=== PATIENT | female | born 1950 | race Caucasian/White ===

== ENCOUNTER 2016-11-03 06:48 | Day surgery (SDC) | payer BC ==
[2016-11-02 17:43] VITALS: BMI 29.3
[~2016-11-03] VITALS: Ht 160 cm; Wt 77.0 kg
[2016-11-03] VITALS (14 sets, daily range): BP systolic 122–161; BP diastolic 72–90; PULSE 96–110; RESP 15–18; Ht 160 cm; Wt 77.0 kg
[~2016-11-03 06:48] MED LIST: CEFAZOLIN 2 GM/50 ML (PMX) 50 ML IVPB ONE
[2016-11-03] MEDS ORDERED: SOD CHLORIDE 0.9% 1,000 ML IV SCH (07:00)
[2016-11-03] MEDS ORDERED: CEFAZOLIN 1 GM INJ ONE (07:00)
[2016-11-03] MEDS ORDERED: LIDOCAINE 2% (SDV) 5 ML INJ ONE (08:44)
[2016-11-03] MEDS ORDERED: GLYCOPYRROLATE 0.4 MG INJ ONE (08:44)
[2016-11-03] MEDS ORDERED: ROCURONIUM 50 MG INJ ONE (08:44)
[2016-11-03] MEDS ORDERED: PROPOFOL 20 ML ONE (08:44)
[2016-11-03] MEDS ORDERED: FENTAnyl 50 MCG/ML VIAL ONE (08:44)
[2016-11-03] MEDS ORDERED: MIDAZOLAM 1 MG/ML 2 ML INJ ONE (08:44)
[2016-11-03] MEDS ORDERED: NEOSTIGMINE 3 MG/3 ML SYRINGE ONE (08:44)
[2016-11-03] MEDS ORDERED: SUCCINYLCHOLINE CHLORIDE 100 MG/5 ML SYG IV ONE (08:45)
[2016-11-03] MEDS ORDERED: EPHEDrine SULFATE 50 MG/5 ML SYG ONE (08:45)
[2016-11-03] MEDS ORDERED: ONDANSETRON 4 MG INJ ONE (08:49)
[2016-11-03] MEDS ORDERED: TELM80TA4 PO (08:55)
[2016-11-03] MEDS ORDERED: MIRT15TA5 PO (08:56)
[2016-11-03] MEDS ORDERED: OMEP20CA16 PO (08:56)
[2016-11-03] MEDS ORDERED: TOPI50TA5 PO (08:56)
[2016-11-03 08:59] LABS: ADD SCAN DIFF NO
[2016-11-03] MEDS ORDERED: DIPHENHYDRAMINE 50 MG INJ IV PRN (09:00)
[2016-11-03] MEDS ORDERED: EPHEDrine SULFATE 50 MG/5 ML SYG IV PRN (09:00)
[2016-11-03] MEDS ORDERED: FENTAnyl 50 MCG/ML VIAL IV PRN ×2 (09:00)
[2016-11-03] MEDS ORDERED: ATROPINE 1 MG/10 ML SYRINGE IV PRN (09:00)
[2016-11-03] MEDS ORDERED: OXYCODONE/ACETAMINOPHEN (5/325) TAB PO PRN ×2 (09:00)
[2016-11-03] MEDS ORDERED: hydrALAzine 20 MG INJ IV PRN (09:00)
[2016-11-03] MEDS ORDERED: HYDROmorphONE (0.2 MG/ML) 10ML SYG IV PRN ×3 (09:00)
[2016-11-03] MEDS ORDERED: morphine (1 MG/ML) 10ML SYRINGE IV PRN ×3 (09:00)
[2016-11-03] MEDS ORDERED: MEPERIDINE 25 MG INJ IV PRN (09:00)
[2016-11-03] MEDS ORDERED: LABETALOL HCL 20MG INJ IV PRN (09:00)
[2016-11-03] MEDS ORDERED: ONDANSETRON 4 MG INJ IV PRN (09:00)
[2016-11-03] MEDS ORDERED: MIDAZOLAM 1 MG/ML 2 ML INJ IV PRN (09:00)
[2016-11-03 09:02] LABS: BASOPHILS % 0.5 % (0.0-2.0); EOSINOPHILS # 0.2 10^3/ul (0.0-0.5); EOSINOPHILS % 3.1 % (0.0-7.0); HEMATOCRIT 37.7 % (37.0-47.0); HEMOGLOBIN 13.1 g/dl (12.0-16.0); LYMPHOCYTES # 2.2 10^3/ul (0.8-2.9); MEAN CORPUSCULAR HEMOGLOBIN 30.8 pg (29.0-33.0); MEAN CORPUSCULAR HGB CONC 34.7 g/dl (32.0-37.0); MEAN CORPUSCULAR VOLUME 88.7 fl (82.0-101.0); MEAN PLATELET VOLUME 10.1 fl (7.4-10.4); MONOCYTE # 0.5 10^3/ul (0.3-0.9); MONOCYTES % 7.8 % (0.0-11.0); NEUTROPHILS % 51.4 % (39.0-77.0); PLATELET COUNT 241 10^3/UL (140-415); RED BLOOD COUNT 4.25 10^6/ul (4.20-5.40); RED CELL DISTRIBUTION WIDTH 13.2 % (11.5-14.5); WHITE BLOOD COUNT 5.9 10^3/ul (4.8-10.8)
[2016-11-03 09:15] LABS: INR 1.06; PARTIAL THROMBOPLASTIN TIME 30.2 Sec (25.0-35.0); PROTIME 13.8 Sec (12.2-14.2); PT RATIO 1.1
--- NOTE | 2016-11-03 09:21 | RADRPT ---
PROCEDURE: XR Chest. CLINICAL INDICATION: Preoperative, breast cancer TECHNIQUE: Single frontal view of the chest was obtained COMPARISON: None FINDINGS: The heart and mediastinum are within normal limits. The lungs are clear. There is no pleural effusion or pneumothorax. RPTAT: AA IMPRESSION: No acute disease. .Galdino Ramirez MD, MD Date Time Electronically viewed and signed by .Galdino Ramirez MD, on 11/03/2016 09:21 .S/
[2016-11-03 09:25] LABS: CALCIUM 9.3 mg/dl (8.4-10.2); CREATININE 0.71 mg/dl (0.44-1.00); POTASSIUM 3.9 mmol/L (3.5-5.1)
[2016-11-03] MEDS ORDERED: CEFAZOLIN 2 GM/50 ML (PMX) 50 ML IVPB SCH (09:30)
[2016-11-03] MEDS ORDERED: LIDOCAINE 4% CR ONE (10:23)
--- NOTE | 2016-11-03 10:38 | RADRPT ---
Vent Rate: 77 bpm RR Interval: 0 msec SC Interval: 138 msec QRS Duration: 82 msec QT Interval: 410 msec QTC Interval: 463 msec P-R-T [place]: 57 - 22 - 44 degrees Normal sinus rhythm Normal ECG Electronically Signed By: Sincere Maurice [id number]
--- NOTE | 2016-11-03 11:39 | OPR ---
DATE OF OPERATION: 11/03/2016 PREOPERATIVE DIAGNOSIS: Ductal carcinoma in situ, left breast. POSTOPERATIVE DIAGNOSIS: Ductal carcinoma in situ, left breast. PROCEDURE PERFORMED: Needle-directed left partial mastectomy. SURGEON: Cheo Murrieta MD COAL HAULER: None. ANESTHESIA: General. ANESTHESIOLOGIST: Mike Hough MD INDICATIONS FOR PROCEDURE: The patient is a 66-year-old female who underwent screening mammography and was found to have a suspicious area in her left breast. Core biopsy revealed DCIS and complete excision was recommended. The patient consented and was scheduled for surgery. DESCRIPTION OF PROCEDURE: On the morning of surgery, the patient presented to [facility] where she underwent localization of the lesion performed by attending radiologis t, Dr. Sallie Green. Subsequently, she was brought to the operating theater and placed under gen eral anesthesia. The localization wire was in the upper outer quadrant of the breast. The breast w as prepped and draped in the usual sterile fashion. A curvilinear incision was made in the region o f the previously placed localization wire. Subcutaneous tissue was dissected with cautery. The ski n edges were then elevated with skin hooks and wide circumferential dissection of the breast tissue associated with the wire then took place with cautery, taking great care to ensure adequate margin. Specimen was then elevated, transected, oriented and sent for radiographic confirmation of capture. Capture was confirmed. Specimen was then sent for permanent pathologic analysis. The wound was irrigated. Minimal bleeding was controlled with cautery. The skin was then reapproxi mated with 4-0 Vicryl suture in a subcuticular fashion and Dermabond was applied. The patient heidi ated the procedure well. Estimated blood loss was 10 mL. There were no complications and the patie nt was transported in stable condition to the recovery room. Dictated By: CHEO MURRIETA MD TL/MATEO Conf#: [id number] DID#: [id number]
== END 2016-11-03 13:45 | disposition home or self-care (01) ==
LOC: SDS 06:48
PROVIDERS: ATTEND Surgery Surgical Oncology
DX: D05.12 Intraductal carcinoma in situ of left breast (principal); I10 Essential (primary) hypertension
CPT/HCPCS: 19301; 71010; 80048; 85025; 85610; 85730; 88307; 93005; J0330; J0690; J2250; J2405; J2710; J3010; Z7512; Z7610

== ENCOUNTER 2016-11-21 10:16 | Day surgery (SDC) | payer BC ==
[~2016-11-21] VITALS: Ht 160 cm; Wt 75.5 kg
[2016-11-21] VITALS (14 sets, daily range): BP systolic 120–145; BP diastolic 66–84; PULSE 87–110; RESP 13–20; Ht 160 cm; Wt 75.5 kg
[~2016-11-21 10:16] MED LIST changes: -CEFAZOLIN 2 GM/50 ML (PMX) 50 ML IVPB ONE; +MIRT15TA5 PO; +OMEP20CA16 PO; +TELM80TA4 PO; +TOPI50TA5 PO
[2016-11-21 11:44] LABS: ADD SCAN DIFF NO
[2016-11-21 11:48] LABS: BASOPHILS % 0.4 % (0.0-2.0); EOSINOPHILS # 0.2 10^3/ul (0.0-0.5); EOSINOPHILS % 3.2 % (0.0-7.0); HEMATOCRIT 38.7 % (37.0-47.0); HEMOGLOBIN 13.5 g/dl (12.0-16.0); LYMPHOCYTES # 1.6 10^3/ul (0.8-2.9); LYMPHOCYTES % 33.9 % (15.0-51.0); MEAN CORPUSCULAR HEMOGLOBIN 30.8 pg (29.0-33.0); MEAN CORPUSCULAR HGB CONC 34.9 g/dl (32.0-37.0); MEAN CORPUSCULAR VOLUME 88.4 fl (82.0-101.0); MEAN PLATELET VOLUME 9.8 fl (7.4-10.4); MONOCYTE # 0.4 10^3/ul (0.3-0.9); MONOCYTES % 7.5 % (0.0-11.0); NEUTROPHIL # 2.6 10^3/ul (1.6-7.5); NEUTROPHILS % 54.8 % (39.0-77.0); PLATELET COUNT 258 10^3/UL (140-415); RED BLOOD COUNT 4.38 10^6/ul (4.20-5.40); RED CELL DISTRIBUTION WIDTH 13.1 % (11.5-14.5); WHITE BLOOD COUNT 4.7 10^3/ul (4.8-10.8)
[2016-11-21 11:59] LABS: INR 1.1; PROTIME 14.2 Sec (12.2-14.2); PT RATIO 1.1
[2016-11-21 12:00] LABS: PARTIAL THROMBOPLASTIN TIME 30.8 Sec (25.0-35.0)
[2016-11-21 12:05] LABS: CALCIUM 9.2 mg/dl (8.4-10.2); CREATININE 0.73 mg/dl (0.44-1.00); POTASSIUM 3.9 mmol/L (3.5-5.1)
[2016-11-21] MEDS ORDERED: LIDOCAINE 2% (SDV) 5 ML INJ ONE (12:26)
[2016-11-21] MEDS ORDERED: MIDAZOLAM 1 MG/ML 2 ML INJ ONE (12:26)
[2016-11-21] MEDS ORDERED: FENTAnyl 50 MCG/ML VIAL ONE (12:26)
[2016-11-21] MEDS ORDERED: CEFAZOLIN 1 GM INJ ONE (12:27)
[2016-11-21] MEDS ORDERED: PROPOFOL 20 ML ONE (12:27)
[2016-11-21] MEDS ORDERED: LABETALOL HCL 20MG INJ IV PRN (13:00)
[2016-11-21] MEDS ORDERED: FENTAnyl 50 MCG/ML VIAL IV PRN (13:00)
[2016-11-21] MEDS ORDERED: PROCHLORPERAZINE 10 MG INJ IV PRN (13:00)
[2016-11-21] MEDS ORDERED: MEPERIDINE 25 MG INJ IV PRN (13:00)
[2016-11-21] MEDS ORDERED: OXYCODONE/ACETAMINOPHEN (5/325) TAB PO PRN ×2 (13:00)
[2016-11-21] MEDS ORDERED: hydrALAzine 20 MG INJ IV PRN (13:00)
[2016-11-21] MEDS ORDERED: HYDROmorphONE (0.2 MG/ML) 10ML SYG IV PRN ×2 (13:00)
[2016-11-21] MEDS ORDERED: DIPHENHYDRAMINE 50 MG INJ IV PRN (13:00)
[2016-11-21] MEDS ORDERED: ONDANSETRON 4 MG INJ IV PRN (13:00)
[2016-11-21] MEDS ORDERED: HYDROCODONE/APAP (7.5/325) TAB PO PRN (14:00)
[2016-11-21] MEDS ORDERED: METOCLOPRAMIDE 10 MG INJ ONE (14:05)
[2016-11-21] MEDS ORDERED: FAMOTIDINE 20 MG INJ ONE (14:05)
[2016-11-21] MEDS ORDERED: ONDANSETRON 4 MG INJ ONE (14:05)
[2016-11-21] MEDS ORDERED: DEXAMETHASONE 4 MG/ML 1 ML INJ ONE (14:05)
[2016-11-21] MEDS ORDERED: PHENYLephrine (100 MCG/ML) 5ML SYG ONE (14:06)
[2016-11-21] MEDS ORDERED: EPHEDrine SULFATE 50 MG/5 ML SYG ONE (14:13)
--- NOTE | 2016-11-21 14:28 | RADRPT ---
PROCEDURE: XR Chest. CLINICAL INDICATION: Preoperative. TECHNIQUE: Single frontal view. COMPARISON: 11/03/2016. FINDINGS: The lungs are clear. The heart size is normal. There is no pleural effusion. There is no pneumothorax. IMPRESSION: 1. Normal chest radiograph. 2. No change from 11/03/2016. RPTAT: QQ .Tom Easley MD, MD Date Time Electronically viewed and signed by .Tom Easley MD, MD on 11/21/2016 14:28 .R/
[2016-11-21] MEDS ORDERED: KETOROLAC 30 MG INJ ONE (14:33)
--- NOTE | 2016-11-21 16:00 | OPR ---
DATE OF OPERATION: 11/21/2016 PREOPERATIVE DIAGNOSIS: Ductal carcinoma in situ, left breast, need for reexcision partial mastecto my. POSTOPERATIVE DIAGNOSIS: Ductal carcinoma in situ, left breast, need for reexcision partial mastect sheeba. OPERATION PERFORMED: Left reexcision partial mastectomy. ANESTHESIA: General. ANESTHESIOLOGIST: Suyapa Velazco MD SURGEON: Cheo Murrieta MD SOCKET PULLER: Carlin Montana MD INDICATIONS FOR PROCEDURE: The patient is a 66-year-old female who previously underwent surveillanc e mammography was found to have suspicious lesion in her left breast. Subsequent needle-directed ex cisional biopsy revealed ductal carcinoma in situ with an inadequate medial margin. The patient was counseled as to the need for reexcision partial mastectomy. She consented and was scheduled for [facility]. DESCRIPTION OF PROCEDURE: The patient was brought to the operating theater, placed under general an esthesia. The left breast was prepped and draped in the usual sterile fashion. The previous surgic al incision in the upper outer quadrant was reincised with 15 blade scalpel. Subcutaneous tissue wa s dissected with cautery. The seroma cavity was entered and several milliliters of straw-colored fl uid were removed. Skin edges were elevated with skin edges and 180 degree resection of the medial m argin then took place using cautery down to the pectoralis major fascia. Specimen was transected, o riented, and sent for permanent pathologic analysis. The wound was irrigated. Minimal bleeding was controlled with cautery. The wound defect was quite large and Dr. Murrieta made the decision it would be prudent to place a #7 BJ drain into the cavity. This was done by passing it through the left mi d axillary line. It was cut to size and laid within the cavity and secured in place with 3-0 nylon suture in the standard fashion. The skin was then reapproximated with 4-0 Vicryl suture in subcutic ular fashion. Dermabond was applied. Patient tolerated procedure well. The estimated blood loss wa s 10 mL. There were no complications and the patient was transported in stable condition to the [facility] overy room. Dictated By: CHEO MURRIETA MD TL/MATEO Conf#: [id number] DID#: [id number] CC: CARLIN MONTANA MD;*End*
--- NOTE | 2016-11-22 18:28 | RADRPT ---
Vent Rate: 79 bpm RR Interval: 0 msec NC Interval: 136 msec QRS Duration: 80 msec QT Interval: 390 msec QTC Interval: 447 msec P-R-T [place]: 55 - 25 - 43 degrees Normal sinus rhythm Normal ECG Electronically Signed By: Jignesh Enrique [id number]
== END 2016-11-21 17:13 | disposition home or self-care (01) ==
LOC: SDS 10:16
PROVIDERS: ATTEND Surgery Surgical Oncology
DX: D05.12 Intraductal carcinoma in situ of left breast (principal); E66.9 Obesity, unspecified; Z68.29 Body mass index [BMI] 29.0-29.9, adult
CPT/HCPCS: 19301; 71010; 80048; 85025; 85610; 85730; 88307; 93005; J0690; J1100; J1885; J2250; J2370; J2405; J2765; J3010; Z7512; Z7610

== ENCOUNTER 2017-11-24 09:20 | Day surgery (SDC) | END 2017-11-24 12:17 | disposition home or self-care (01) ==